=== PATIENT | female | born 2000 | race Caucasian/White ===

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

== ENCOUNTER 2023-05-26 16:45 | Outpatient (CLI) | payer OTHER ==
[~2023-05-26] VITALS: Ht 160 cm; Wt 91.4 kg
[~2023-05-26 16:45] MED LIST changes: -LIDOCAINE 2% INJ 100 MG/5 ML SDV (FOR ANES.) As Ordered ONE; -NS 1,000 ML IV SCH; -PROPOFOL 200 MG/20 ML VIAL As Ordered ONE
[2023-05-26] MEDS ORDERED: CLIN150C17 PO (17:03)
[2023-05-26] MEDS ORDERED: CLAR5TAB11 PO (17:03)
[2023-05-26] MEDS ORDERED: PREG200C2 PO (17:03)
[2023-05-26] MEDS ORDERED: TUMS750C22 PO (17:03)
[2023-05-26 17:05] VITALS: BP 128/86; O2SAT 98
[2023-05-26 18:19] VITALS: BP 124/66
[2023-05-26 19:01] VITALS: BP 127/73
[2023-05-26] MEDS ORDERED: HOME MED LIST COMPLETE! XX SCH (19:45)
== END 2023-05-26 20:22 | disposition home or self-care (01) ==
LOC: M LDO 16:45
PROVIDERS: ATTEND Specialist
DX: O26.892 Other specified pregnancy related conditions, second trimester (principal); R10.84 Generalized abdominal pain; O42.912 Preterm premature rupture of membranes, unspecified as to length of time between rupture and onset of labor, second trimester; Z3A.21 21 weeks gestation of pregnancy
CPT/HCPCS: 59025; 76815; G0463